=== PATIENT | female | born 1950 | race Caucasian/White ===

== ENCOUNTER 2020-02-15 18:15 | Outpatient (CLI) | payer MEDICARE, OTHER | END 2020-02-15 18:16 | disposition critical access hospital (66) | LOC: EMS 18:15 | PROVIDERS: ATTEND Surgery | DX: S09.90XA Unspecified injury of head, initial encounter (principal); W01.0XXA Fall on same level from slipping, tripping and stumbling without subsequent striking against object, initial encounter; Y92.008 Other place in unspecified non-institutional (private) residence as the place of occurrence of the external cause; Z79.01 Long term (current) use of anticoagulants | CPT/HCPCS: A0425; A0429 ==

== ENCOUNTER 2020-02-15 18:31 | Emergency (ER) | payer MEDICARE, OTHER ==
--- NOTE | 2020-02-15 18:41 | ED Physician Documentation ---
PD HPI HEAD INJURY - Stated complaint Stated Complaint: FALL/ HEAD INJURY - History obtained from History obtained from: Patient (This is a very pleasant 69-year-old woman who is maintained On warfarin for a history of factor V Leiden with history of PEs, last checked 4 days ago and it was 2.1 per her. Her cat got outside today and she was chasing it down, went around a corner in the driveway and slipped and fell hitting her left side of her head against a brick planter. No loss of consciousness and only a minimal headache. She also has a little scratch on the left forearm. She is up-to-date on tetanus.) Review of Systems Constitutional: reports: Reviewed and negative Ears: reports: Reviewed and negative Nose: reports: Reviewed and negative Throat: reports: Reviewed and negative PD PAST MEDICAL HISTORY - Present Medications Home Medications: Ambulatory Orders Medication Instructions Recorded Confirmed Levothyroxine [Synthroid] 50 mcg PO QDAC 02/15/20 02/15/20 Propranolol HCl [Propranolol HCl 60 mg PO DAILY 02/15/20 02/15/20 ER] Sertraline [Zoloft] 50 mg PO DAILY 02/15/20 02/15/20 Warfarin [Coumadin] 3 mg PO DAILY 02/15/20 02/15/20 traZODone [Desyrel] 50 mg PO HS 02/15/20 02/15/20 - Allergies Allergies/Adverse Reactions: Allergies Allergy/AdvReac Type Severity Reaction Status Date / Time acyclovir Allergy Anaphylaxis Verified 02/15/20 19:01 cefdinir Allergy Anaphylaxis Verified 02/15/20 19:01 cefuroxime Allergy Anaphylaxis Verified 02/15/20 19:01 ciprofloxacin [From Cipro] Allergy Anaphylaxis Verified 02/15/20 19:01 dapsone Allergy Anaphylaxis Verified 02/15/20 19:01 doxycycline [From Vibramycin] Allergy Anaphylaxis Verified 02/15/20 19:01 metoclopramide [From Reglan] Allergy Anaphylaxis Verified 02/15/20 19:01 Penicillins Allergy Anaphylaxis Verified 02/15/20 19:01 prednisone Allergy Anaphylaxis Verified 02/15/20 19:01 Npazaqi-Mpc-Ibl Reductase Allergy Anaphylaxis Verified 02/15/20 19:01 Inhibitor PD ED PE NORMAL - Vitals Vital signs reviewed: Yes - General General: Alert and oriented X 3, No acute distress, Other (There is a scratch on her left arm, no tenderness.) - HEENT HEENT: PERRL, EOMI - Neck Neck: No bony TTP (Maintained in a collar pending imaging given advanced age) - Neuro Neuro: Alert and oriented X 3, 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, No motor deficit, No sensory deficit, Normal speech Results - Vitals Vitals: Vital Signs - 24 hr 02/15/20 02/15/20 18:38 19:30 Temperature 37.1 C Heart Rate 71 70 Respiratory 20 16 Rate Blood Pressure 157/83 H 152/88 H O2 Saturation 100 97 Oxygen O2 Source Room air - Labs Labs: Laboratory Tests 02/15/20 19:20 Whole Blood INR 2.2 H - Rads (name of study) CT head and cervical spine Radiology: EMP read contemporaneously (No traumatic injuries) PD MEDICAL DECISION MAKING - ED course ED course: 69-year-old woman on anticoagulation for history of factor V Leiden presents after ground-level fall with a head injury. CT of the head and neck were negative for traumatic injuries. INR was 2.2. Departure - Departure Disposition: 01 Home, Self Care Clinical Impression: Adequate anticoagulation on anticoagulant therapy Injury of head and neck Qualifiers: Encounter type: initial encounter Qualified Code(s): S09.90XA - Unspecified injury of head, initial encounter Condition: Good Record reviewed to determine appropriate education?: Yes Instructions: ED Head Injury Closed Comments: Call your doctor to arrange a follow-up appointment, make the next available appointment. In the interim, return anytime if worse or if new symptoms develop. Discharge Date/Time: 02/15/20 19:30
--- NOTE | 2020-02-15 19:00 | CT Report ---
Reason: head injury Procedure Date: 02/15/2020 Accession Number: [id number] / [id number] Procedure: CT - HEAD WO CPT Code: Final Report FULL RESULT: EXAM: CT HEAD EXAM DATE: 02/15/2020 06:53 PM. CLINICAL HISTORY: Head injury. COMPARISON: None. TECHNIQUE: Multiaxial CT images were obtained from the foramen magnum to the vertex. Reformats: Sagittal and coronal. IV contrast: None. In accordance with CT protocol optimization, one or more of the following dose reduction techniques were utilized for this exam: automated exposure control, adjustment of mA and/or KV based on patient size, or use of iterative reconstructive technique. FINDINGS: Parenchyma: No intraparenchymal hemorrhage. No evidence of mass, midline shift, or CT findings of infarction. Jalloh-white differentiation is distinct. Extraaxial Spaces: Normal for age. No subdural or epidural collections identified. Ventricles: Normal in size and position. Sinuses and Orbits: Imaged paranasal sinuses, orbits, and mastoids show no significant abnormality. Bones: No evidence of fracture or calvarial defect. Other: None. IMPRESSION: No acute traumatic intracranial abnormality. RADIA
--- NOTE | 2020-02-15 19:01 | CT Report ---
Reason: head injury Procedure Date: 02/15/2020 Accession Number: [id number] / [id number] Procedure: CT - CERVICAL SPINE WO CPT Code: Final Report FULL RESULT: EXAM: CT CERVICAL SPINE WITHOUT CONTRAST DATE: 02/15/2020 06:53 PM. HISTORY: Head injury. COMPARISONS: None. TECHNIQUE: Thin-section axial images were acquired of the cervical spine without contrast. Post-processing: Coronal and sagittal reformats. Other: None. In accordance with CT protocol optimization, one or more of the following dose reduction techniques were utilized for this exam: automated exposure control, adjustment of mA and/or KV based on patient size, or use of iterative reconstructive technique. FINDINGS: Alignment: No scoliosis or spondylolisthesis. Bones: No fracture or bone lesion. Musculature: Normal. No fatty atrophy. Other: The paravertebral and prevertebral soft tissues are unremarkable. The lung apices are clear. IMPRESSION: No acute displaced fracture or malalignment in clinical setting of trauma. RADIA
[2020-02-15 19:31] VITALS: BP 152/88
== END 2020-02-15 19:30 | disposition home or self-care (01) ==
LOC: ED 18:31
DX: S09.90XA Unspecified injury of head, initial encounter (principal); S50.812A Abrasion of left forearm, initial encounter; W01.198A Fall on same level from slipping, tripping and stumbling with subsequent striking against other object, initial encounter; Y93.89 Activity, other specified; Y92.008 Other place in unspecified non-institutional (private) residence as the place of occurrence of the external cause; D68.51 Activated protein C resistance; Z86.711 Personal history of pulmonary embolism; Z79.01 Long term (current) use of anticoagulants
CPT/HCPCS: 70450; 72125; 85610; 99284

== ENCOUNTER 2020-11-01 14:07 | Outpatient (CLI) | payer MEDICARE, OTHER | END 2020-11-01 14:08 | disposition home or self-care (01) | LOC: COV 14:07 | PROVIDERS: ATTEND Family Medicine | DX: R05 Cough (principal); M79.10 Myalgia, unspecified site; R53.83 Other fatigue; R68.83 Chills (without fever); R07.0 Pain in throat; R43.8 Other disturbances of smell and taste; R09.81 Nasal congestion; J34.89 Other specified disorders of nose and nasal sinuses; R19.7 Diarrhea, unspecified; Z20.822 Contact with and (suspected) exposure to COVID-19 ==

== ENCOUNTER 2021-01-30 08:00 | Outpatient (CLI) | payer MEDICARE, OTHER ==
[2021-01-31 19:04] LABS: BACTERIAL VAGINOSIS DNA NEGATIVE (NEGATIVE); CANDIDA GLABRATA DNA NEGATIVE (NEGATIVE); CANDIDA GROUP DNA NEGATIVE (NEGATIVE); CANDIDA KRUSEI DNA NEGATIVE (NEGATIVE); TRICHOMONAS VAGINALIS DNA NEGATIVE (NEGATIVE)
== END 2021-01-30 23:59 | disposition home or self-care (01) ==
LOC: LAB.R 08:00
PROVIDERS: ATTEND Obstetrics & Gynecology
DX: B37.9 Candidiasis, unspecified (principal)
CPT/HCPCS: 87661; 87801

== ENCOUNTER 2021-02-05 08:00 | Outpatient (CLI) | payer MEDICARE, OTHER | END 2021-02-05 23:59 | disposition home or self-care (01) | LOC: LAB.R 08:00 | PROVIDERS: ATTEND Internal Medicine Hematology & Oncology | DX: C90.00 Multiple myeloma not having achieved remission (principal) | CPT/HCPCS: 81599; 82570; 84156; 84166 ==

== ENCOUNTER 2021-02-10 10:59 | Outpatient (CLI) | payer MEDICARE, OTHER ==
--- NOTE | 2021-02-11 12:12 | Mammography Report ---
BILATERAL DIGITAL SCREENING MAMMOGRAM 3D/2D: 02/10/2021 CLINICAL: Routine screening. Comparison is made to exams dated: 05/03/2019 mammogram, 01/25/2018 mammogram, and 07/18/2015 mammogra m - [facility]. The tissue of both breasts is heterogeneously dense. This may lower the sensitiv ity of mammography. No significant masses, calcifications, or other findings are seen in either breast. There has been no significant interval change. IMPRESSION: NEGATIVE There is no mammographic evidence of malignancy. A 1 year screening mammogram is recommended. This exam was interpreted at Station ID: [id number]. NOTE: For mammograms, a report in lay terms will be sent to the patient. Approximately 15% of breast malignancies will not be visualized mammographically. In the management of a palpable breast mass, a negative mammogram must not discourage biopsy of a clinically suspicious lesion. Electronically Signed By: Carlton Gentile M.D. slc/penrad:02/10/2021 13:47:10 ACR BI-RADS Category 1: Negative 3341F PARENCHYMAL PATTERN: (D) - The breast(s) demonstrate(s) heterogeneously dense fibroglandular toni baldwin. BI-RADS CATEGORY: (1) - 1 RECOMMENDATION: (ANNUAL) - Recommend routine annual screening mammography. [id number] 1 year screening LATERALITY: (B)
== END 2021-02-10 11:00 | disposition home or self-care (01) ==
LOC: DI.N 10:59
PROVIDERS: ATTEND Internal Medicine
DX: Z12.31 Encounter for screening mammogram for malignant neoplasm of breast (principal)

== ENCOUNTER 2021-07-31 13:07 | Outpatient (CLI) | payer MEDICARE, OTHER | END 2021-07-31 13:08 | disposition critical access hospital (66) | LOC: EMS 13:07 | DX: S09.90XA Unspecified injury of head, initial encounter (principal); M54.2 Cervicalgia; W01.0XXA Fall on same level from slipping, tripping and stumbling without subsequent striking against object, initial encounter; Y92.009 Unspecified place in unspecified non-institutional (private) residence as the place of occurrence of the external cause | CPT/HCPCS: A0425; A0429 ==

== ENCOUNTER 2021-07-31 13:18 | Emergency (ER) | payer MEDICARE, OTHER ==
[2021-07-31] MEDS ORDERED: HYDROcod/ACETAM 5/325 MG TABLET PO STA (13:23)
--- NOTE | 2021-07-31 13:24 | ED Physician Documentation ---
PD HPI HEAD INJURY - Stated complaint Stated Complaint: GLF - History obtained from History obtained from: Patient, EMS - Additional information Additional information: 71-year-old woman who is on Coumadin for history of factor V Leiden with history of thromboembolic disease presents by ambulance after a ground-level fall. She was carrying a box and tripped over it and fell forward hitting her face on the ground. There is no loss of consciousness but she does have moderate headache and neck pain. She also had some visual flashes which are resolving. She requests pain medication. She is up-to-date on tetanus. 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 - Past Surgical History Past Surgical History: Yes General: Bowel surgery Ortho: Knee replacement, Shoulder arthroplasty /TEST ENGINEERING MANAGER: Hysterectomy HEENT: Tonsil/Adenoidectomy - Present Medications Home Medications: Ambulatory Orders Medication Instructions Recorded Confirmed Levothyroxine [Synthroid] 50 mcg PO QDAC 02/15/20 07/07/21 Propranolol HCl [Propranolol HCl 60 mg PO DAILY 02/15/20 07/07/21 ER] Sertraline [Zoloft] 50 mg PO DAILY 02/15/20 07/07/21 Warfarin [Coumadin] 3 mg PO DAILY 02/15/20 07/07/21 traZODone [Desyrel] 50 mg PO HS 02/15/20 07/07/21 HYDROcod/ACETAM 5/325 [Warren 5/325] 1 - 2 tab PO Q6H PRN #15 tablet 07/31/21 - Allergies Allergies/Adverse Reactions: Allergies Allergy/AdvReac Type Severity Reaction Status Date / Time acyclovir Allergy Anaphylaxis Verified 07/31/21 13:26 cefdinir Allergy Anaphylaxis Verified 07/31/21 13:26 cefuroxime Allergy Anaphylaxis Verified 07/31/21 13:26 ciprofloxacin [From Cipro] Allergy Anaphylaxis Verified 07/31/21 13:26 dapsone Allergy Anaphylaxis Verified 07/31/21 13:26 doxycycline [From Vibramycin] Allergy Anaphylaxis Verified 07/31/21 13:26 metoclopramide [From Reglan] Allergy Anaphylaxis Verified 07/31/21 13:26 Penicillins Allergy Anaphylaxis Verified 07/31/21 13:26 prednisone Allergy Anaphylaxis Verified 07/31/21 13:26 Nuapemx-GJP-UeO Reductase Allergy Anaphylaxis Verified 07/31/21 13:26 Inhibitor [Raeopgl-Igt-Loq Reductase Inhibitor] - Social History Does the pt smoke?: No Smoking Status: Never smoker PD ED PE NORMAL - Vitals Vital signs reviewed: Yes - General General: Alert and oriented X 3, No acute distress - HEENT HEENT: PERRL, EOMI, Other (Shallow abrasions over the tip of the nose and philtrum without bony tenderness of the face) - Neck Neck: Other (Mild mid and upper C-spine tenderness, maintained in a collar pending imaging) - Abdomen Abdomen: Non tender - Back Back: No CVA TTP, No spinal TTP - Extremities Extremities: No deformity, No tenderness to palpate, Normal ROM s pain - Neuro Neuro: Alert and oriented X 3, Normal speech Eye Opening: Spontaneous Motor: Obeys Commands Verbal: Oriented GCS Score: 15 Results - Vitals Vitals: Vital Signs - 24 hr 07/31/21 13:23 Temperature 37.1 C Heart Rate 65 Respiratory 14 Rate Blood Pressure 166/85 H O2 Saturation 99 Oxygen O2 Source Room air - Labs Labs: Laboratory Tests 07/31/21 13:26 INR (Fingerstick) 2.5 H - Rads (name of study) CT of the head without contrast demonstrates atrophy and multifocal white matter ischemic changes without hemorrhage or mass-effect. Radiology: EMP read contemporaneously Cervical spine CT without contrast demonstrates multilevel DDD and art hropathy without trauma Radiology: EMP read contemporaneously Departure - Departure Disposition: 01 Home, Self Care Clinical Impression: Adequate anticoagulation on anticoagulant therapy Injury of head and neck Qualifiers: Encounter type: initial encounter Qualified Code(s): S09.90XA - Unspecified injury of head, initial encounter Condition: Good Instructions: ED Head Injury Closed Prescriptions: HYDROcod/ACETAM 5/325 [Warren 5/325] 1 - 2 tab PO Q6H PRN #15 tablet PRN Reason: Pain Comments: Your INR today was 2.5 which is mid normal range for her somebody was anticoagulated. Return for new or worsening symptoms or if you develop more severe headache or for persistent headaches. Follow-up with your primary care physician.
--- NOTE | 2021-07-31 14:23 | CT Report ---
PROCEDURE: CT brain without contrast INDICATIONS: Trauma, pain TECHNIQUE: Noncontrast 4.5 mm thick angled axial sections acquired from the foramen magnum to the vertex. For r adiation dose reduction, the following was used: automated exposure control, adjustment of mA and/or kV according to patient size. COMPARISON: None. FINDINGS: Cerebrum, Cerebellum and Brainstem: Moderate cerebral and cerebellar atrophy as well as moderate mul tifocal hypoattenuation in the deep and subcortical white matter present. No acute hemorrhage or mas s effect. Jalloh-white distinction is preserved throughout the exam. Basal cisterns and foramen magnu m are clear. Ventricles: Appropriate in size and position given the amount of cerebral atrophy. No evidence of h ydrocephalus. Skull Base: The bony sella, pituitary gland and infundibulum are unremarkable. Clivus and craniover tebral relationships are appropriate. Visualized portions of external auditory canals and tympanic c avities are within normal limits. Calvarium and Scalp: No scalp soft tissue swelling. The underlying calvarium is intact without skul l fracture or lytic lesion. Paranasal Sinuses: Unremarkable as visualized. No mucosal thickening or retention cyst noted. Mastoids: Unremarkable as visualized. No mastoid effusion present. Other: Atherosclerotic calcification in the cavernous portions of the distal internal carotid arteri es are noted. IMPRESSION: 1. Atrophy and multifocal white matter chronic ischemic change without acute hemorrhage or mass effe ct. Reviewed by: Alex Berry MD on 07/31/2021 1:22 PM HEATH Approved by: Alex Berry MD on 07/31/2021 1:22 PM AKDT Station ID: [id number]
--- NOTE | 2021-07-31 14:27 | CT Report ---
PROCEDURE: CERVICAL SPINE WO INDICATIONS: head injury TECHNIQUE: Noncontrast 3 mm thick sections acquired from the skull base to the T4 level. Sagittal a nd coronal reformats were then constructed. For radiation dose reduction, the following was used: a utomated exposure control, adjustment of mA and/or kV according to patient size. COMPARISON: None. FINDINGS: Image quality: Excellent. Bones: No fractures or dislocations. Visualized superior ribs are intact. Disc space narrowing and small anterior osteophytes noted in the mid to lower cervical spine. Moderate central stenosis prese nt at C5-6 and C6-7 Soft tissues: Prevertebral soft tissues are normal in thickness. No paravertebral hematomas. No ap ical pneumothoraces. Atherosclerotic vascular calcification noted in the aortic arch. IMPRESSION: 1. Multilevel degenerative disc disease and arthropathy without fracture or traumatic malalignment Reviewed by: Alex Berry MD on 07/31/2021 1:26 PM AKMARITA Approved by: Alex Berry MD on 07/31/2021 1:26 PM AKDT Station ID: [id number]
[2021-07-31 14:38] VITALS: BP 156/79
[2021-07-31] MEDS ORDERED: BACITRACIN ZINC OINT 1 PACKET TOP STA (14:45)
== END 2021-07-31 14:49 | disposition home or self-care (01) ==
LOC: EDUNIT# → ED 13:18
DX: S09.90XA Unspecified injury of head, initial encounter (principal); S00.31XA Abrasion of nose, initial encounter; S00.511A Abrasion of lip, initial encounter; W01.0XXA Fall on same level from slipping, tripping and stumbling without subsequent striking against object, initial encounter; Y93.89 Activity, other specified; M50.322 Other cervical disc degeneration at C5-C6 level; M48.02 Spinal stenosis, cervical region; D68.51 Activated protein C resistance; Z86.718 Personal history of other venous thrombosis and embolism; Z86.711 Personal history of pulmonary embolism; Z79.01 Long term (current) use of anticoagulants
CPT/HCPCS: 36416; 70450; 72125; 85610; 99283; 99284; A9270

== ENCOUNTER 2021-10-27 10:23 | Outpatient (CLI) | payer MEDICARE, OTHER | END 2021-10-27 10:24 | disposition home or self-care (01) | LOC: LAB.N 10:23 | PROVIDERS: ATTEND Internal Medicine | DX: E03.9 Hypothyroidism, unspecified (principal) | CPT/HCPCS: 36415; 84443 ==

== ENCOUNTER 2021-12-09 08:44 | Day surgery (SDC) | payer MEDICARE, OTHER ==
[2021-12-09] MEDS ORDERED: LACTATED RINGERS 1,000 ML IV ONE ×2 (08:49→11:22)
--- NOTE | 2021-12-09 09:46 | ANESTHESIA ---
Pre-Anesthesia VS, & Labs - Diagnosis hx of polyps - Procedure colonoscopy Vital Signs: Temp Pulse Resp BP Pulse Ox 36.1 C L 73 11 L 143/93 H 100 12/09/21 09:02 12/09/21 09:02 12/09/21 09:02 12/09/21 09:02 12/09/21 09:02 Height: 5 ft 5 in Weight (kg): 95 kg Body Mass Index: 34.8 BMI Classification: Obese - NPO >8 hours - Is Patient ?: No Home Medications and Allergies Home Medications: Ambulatory Orders Alprazolam [Xanax] 0.5 mg PO PRN PRN 11/28/21 Cholecalciferol [Vitamin D3] 50 mcg PO DAILY 11/28/21 Cyanocobalamin (Vitamin B-12) [Vitamin B-12] 1,000 mcg PO DAILY 11/28/21 Enoxaparin [Lovenox] 120 mg SUBQ Q24H 11/28/21 Multivitamin 1 each PO DAILY 11/28/21 Cubero-3/Dha/Epa/Fish Oil [Fish Oil 1,000 mg Softgel] 1 each PO DAILY 11/28/21 Ondansetron [Ondansetron Odt] 8 mg PO PRN PRN 11/28/21 oxyCODONE/ACET 5/325 [Percocet 5 mg/325 mg] 1 each PO Q4-6H PRN 11/28/21 Levothyroxine [Synthroid] 50 mcg PO QDAC 02/15/20 Propranolol HCl [Propranolol HCl ER] 60 mg PO DAILY 02/15/20 Sertraline [Zoloft] 75 mg PO DAILY 02/15/20 Warfarin [Coumadin] 3 mg PO DAILY 02/15/20 traZODone [Desyrel] 50 mg PO HS 02/15/20 Alprazolam [Xanax] 0.5 mg PO PRN PRN 11/28/21 Cholecalciferol [Vitamin D3] 50 mcg PO DAILY 11/28/21 Cyanocobalamin (Vitamin B-12) [Vitamin B-12] 1,000 mcg PO DAILY 11/28/21 Enoxaparin [Lovenox] 120 mg SUBQ Q24H 11/28/21 Multivitamin 1 each PO DAILY 11/28/21 Cubero-3/Dha/Epa/Fish Oil [Fish Oil 1,000 mg Softgel] 1 each PO DAILY 11/28/21 Ondansetron [Ondansetron Odt] 8 mg PO PRN PRN 11/28/21 oxyCODONE/ACET 5/325 [Percocet 5 mg/325 mg] 1 each PO Q4-6H PRN 11/28/21 Allergies/Adverse Reactions: Allergies Allergy/AdvReac Type Severity Reaction Status Date / Time acyclovir Allergy Hives Verified 11/28/21 12:01 cefdinir Allergy palpitations, Verified 11/28/21 12:01 nausea, confusion, diarrhea cefuroxime Allergy Nausea, Verified 11/28/21 12:01 diarrhea ciprofloxacin [From Cipro] Allergy palpitations, Verified 11/28/21 12:01 confusion, hallucinations dapsone Allergy methemoglob Verified 11/28/21 12:01 inemia doxycycline [From Vibramycin] Allergy Anaphylaxis Verified 11/28/21 12:01 metoclopramide [From Reglan] Allergy confusion, Verified 11/28/21 12:01 hallucinations, jittery, tremors nitrofurantoin Allergy palpitation Verified 11/28/21 12:01 [From Macrobid] s Penicillins Allergy Anaphylaxis Verified 11/28/21 12:01 prednisone Allergy Hallucinati Verified 11/28/21 12:01 ons Tpwzcls-PCQ-ZdK Reductase Allergy muscle Verified 11/28/21 12:01 Inhibitor pain, [Dyigajn-Ltm-Jcs Reductase kidney Inhibitor] issues Anes History & Medical History - Anesthetic History Anesthesia Complications: reports: No previous complications Family history of Anesthesia Complications: Denies Family history of Malignant Hyperthermia: Denies - Medical History Cardiovascular: reports: High cholesterol, Deep vein thrombosis, Pulmonary embolism, Atrial fibrillation, Arrhythmia, Valve disorder Pulmonary: reports: None Gastrointestinal: reports: Colon polyps, Other Urinary: reports: Kidney stones Musculoskeletal: reports: None Endocrine/Autoimmune: reports: Other Skin: reports: Other Smoking Status: Never smoker - Surgical History General: reports: Bowel surgery, Colonoscopy, Other Eyes Ears Nose Throat (EENT): reports: Tonsil/Adenoidectomy Gynecologic: reports: Hysterectomy Orthopedic: reports: Rotator cuff repair, Arthroscopic surgery Dermatologic: reports: Skin cancer surgery Exam General: Alert, Oriented x3, Cooperative Dental: WNL Mouth Openin Fingerbreadth Neck Mobility: Normal Mallampati classification: II Thyromental Distance: 4-6 cm Respiratory: Lungs clear Cardiovascular: Regular rate Plan Anesthesia Type: Total IV Consent for Procedure(s) Verified and Reviewed: Yes Code Status: Attempt Resuscitation ASA classification: 3-Severe systemic disease Is this case an emergency?: No
[2021-12-09] MEDS ORDERED: PROPOFOL 500 MG/50 ML 500 MG/50 ML VIAL ONE (10:57)
[2021-12-09 11:47] VITALS: BP 133/87
== END 2021-12-09 08:45 | disposition home or self-care (01) ==
LOC: SDS 08:44
PROVIDERS: ATTEND Surgery
PROC: 0DBE8ZX Excision of Large Intestine, Via Natural or Artificial Opening Endoscopic, Diagnostic (ICD-10-PCS; 2021-12-09)
PROC: 0DBL8ZZ Excision of Transverse Colon, Via Natural or Artificial Opening Endoscopic (ICD-10-PCS; 2021-12-09)
PROC: 0DBM8ZZ Excision of Descending Colon, Via Natural or Artificial Opening Endoscopic (ICD-10-PCS; principal; 2021-12-09 10:15)
DX: R19.7 Diarrhea, unspecified (principal); D12.3 Benign neoplasm of transverse colon; D12.4 Benign neoplasm of descending colon; K57.30 Diverticulosis of large intestine without perforation or abscess without bleeding; E66.9 Obesity, unspecified; Z68.34 Body mass index [BMI] 34.0-34.9, adult; I48.91 Unspecified atrial fibrillation; Z79.01 Long term (current) use of anticoagulants; I34.1 Nonrheumatic mitral (valve) prolapse
CPT/HCPCS: 45380; 81599; 83630; 87015; 87177; 87209; 87272; 87329; 87493; J7120; 87045; 87046

== ENCOUNTER 2021-12-13 10:41 | Outpatient (CLI) | payer MEDICARE, OTHER | END 2021-12-13 23:59 | disposition home or self-care (01) | LOC: LAB.N 10:41 | PROVIDERS: ATTEND Physician Assistant Medical | DX: R30.0 Dysuria (principal) | CPT/HCPCS: 87077; 87086; 87181 ==

== ENCOUNTER 2022-03-24 10:37 | Outpatient (CLI) | payer MEDICARE, OTHER ==
[2022-03-24 12:35] LABS: ESTIMATED AVERAGE GLUCOSE 103 mg/dL (70-100); HEMOGLOBIN A1c% 5.2 % (4.27-6.07)
== END 2022-03-24 10:38 | disposition home or self-care (01) ==
LOC: LAB.N 10:37
PROVIDERS: ATTEND Nurse Practitioner
DX: Z00.00 Encounter for general adult medical examination without abnormal findings (principal); Z71.89 Other specified counseling; Z79.84 Long term (current) use of oral hypoglycemic drugs
CPT/HCPCS: 36415; 83036; 84443

== ENCOUNTER 2023-08-18 15:49 | Outpatient (CLI) | payer MEDICARE | END 2023-08-18 15:50 | disposition short-term general hospital (02) | LOC: EMS 15:49 | PROVIDERS: ATTEND Emergency Medicine | DX: R00.2 Palpitations (principal); R30.0 Dysuria; R03.0 Elevated blood-pressure reading, without diagnosis of hypertension; R42 Dizziness and giddiness; R06.00 Dyspnea, unspecified; R51.9 Headache, unspecified | CPT/HCPCS: A0425; A0429 ==

== ENCOUNTER 2023-10-22 17:59 | Outpatient (CLI) | payer MEDICARE | END 2023-10-22 23:59 | disposition EMS.NT | LOC: EMS 17:59 | DX: R22.0 Localized swelling, mass and lump, head (principal) ==

== ENCOUNTER 2024-02-16 15:45 | Outpatient (CLI) | payer MEDICARE | END 2024-02-16 16:00 | disposition home or self-care (01) | LOC: LAB.N 15:45 | PROVIDERS: ATTEND Physician Assistant Medical | DX: R30.0 Dysuria (principal) | CPT/HCPCS: 87086 ==

== ENCOUNTER 2024-03-03 20:53 | Outpatient (CLI) | payer MEDICARE | END 2024-03-03 23:59 | disposition critical access hospital (66) | LOC: EMS 20:53 | DX: R10.12 Left upper quadrant pain (principal); R10.2 Pelvic and perineal pain; R10.812 Left upper quadrant abdominal tenderness | CPT/HCPCS: A0425; A0429 ==

== ENCOUNTER 2024-03-03 21:16 | Emergency (ER) | payer MEDICARE ==
--- NOTE | 2024-03-03 21:39 | ED Physician Documentation ---
PD HPI ABD PAIN - Stated complaint Stated Complaint: LUQ/FLANK PX - Chief complaint Chief Complaint: Abd Pain - History obtained from History obtained from: Patient - Additional information Additional information: This is a 73-year-old female who has a history of multiple myeloma status post stem cell transplant 13 years ago, and a prior colon resection due to a mass in her cecum, As well as prior DVT and atrial fibrillation now currently on warfarin, presents with left-sided abdominal pain for the last week or so but worsening today. It starts in the suprapubic region and radiates up into the left flank and left upper back. She states no dysuria urgency or frequency, no hematuria, no change in bowels though she does have chronic diarrhea, she has not had a fever to her knowledge. She states she simply was "tired of the pain," and is presented to the ER. Patient does note she was seen about 2 weeks ago in the walk-in clinic and given a 3-day course of Bactrim for presumably a UTI and she is concerned that this did not completely resolve her symptoms as she did seem to get better for a period of time before symptoms recurred. Review of Systems Constitutional: reports: Reviewed and negative Eyes: reports: Reviewed and negative Ears: reports: Reviewed and negative Nose: reports: Reviewed and negative Throat: reports: Reviewed and negative Cardiac: reports: Reviewed and negative Respiratory: reports: Reviewed and negative GI: reports: Abdominal Pain, Nausea, Diarrhea. 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 MAKER: Endometriosis : Kidney stones HEENT: Chronic vision loss, Other Psych: Claustrophobia Musculoskeletal: None Derm: Other - Past Surgical History Past Surgical History: Yes General: Bowel surgery, Colonoscopy, Other Ortho: Rotator cuff repair, Arthroscopic surgery /CATALOGUE MAKER: Hysterectomy HEENT: Tonsil/Adenoidectomy Derm: Skin cancer surgery - Present Medications Home Medications: Ambulatory Orders Medication Instructions Recorded Confirmed Levothyroxine [Synthroid] 50 mcg PO QDAC 02/15/20 04/13/22 Propranolol HCl [Propranolol HCl 60 mg PO DAILY 02/15/20 04/13/22 ER] Sertraline [Zoloft] 75 mg PO DAILY 02/15/20 04/13/22 Warfarin [Coumadin] 3 mg PO DAILY 02/15/20 04/13/22 traZODone [Desyrel] 50 mg PO HS 02/15/20 04/13/22 Alprazolam [Xanax] 0.5 mg PO PRN PRN 11/28/21 04/13/22 Cholecalciferol [Vitamin D3] 50 mcg PO DAILY 11/28/21 04/13/22 Cyanocobalamin (Vitamin B-12) 1,000 mcg PO DAILY 11/28/21 04/13/22 [Vitamin B-12] Enoxaparin [Lovenox] 120 mg SUBQ Q24H 11/28/21 04/13/22 Multivitamin 1 each PO DAILY 11/28/21 04/13/22 [place]-3/Dha/Epa/Fish Oil [Fish Oil 1 each PO DAILY 11/28/21 04/13/22 1,000 mg Softgel] Ondansetron [Ondansetron Odt] 8 mg PO PRN PRN 11/28/21 04/13/22 oxyCODONE/ACET 5/325 [Percocet 5 1 each PO Q4-6H PRN 11/28/21 04/13/22 mg/325 mg] - Allergies Allergies/Adverse Reactions: Allergies Allergy/AdvReac Type Severity Reaction Status Date / Time acyclovir Allergy Hives Verified 03/03/24 21:36 cefdinir Allergy palpitations, Verified 03/03/24 21:36 nausea, confusion, diarrhea cefuroxime Allergy Nausea, Verified 03/03/24 21:36 diarrhea ciprofloxacin [From Cipro] Allergy palpitations, Verified 03/03/24 21:36 confusion, hallucinations dapsone Allergy methemoglob Verified 03/03/24 21:36 inemia doxycycline [From Vibramycin] Allergy Anaphylaxis Verified 03/03/24 21:36 metoclopramide [From Reglan] Allergy confusion, Verified 03/03/24 21:36 hallucinations, jittery, tremors nitrofurantoin Allergy palpitation Verified 03/03/24 21:36 [From Macrobid] s Penicillins Allergy Anaphylaxis Verified 03/03/24 21:36 prednisone Allergy Hallucinati Verified 03/03/24 21:36 ons Dbucovh-PTC-BoA Reductase Allergy muscle Verified 03/03/24 21:36 Inhibitor pain, [Arctnwl-Odt-Asw Reductase kidney Inhibitor] issues sulfamethoxazole Allergy Unknown Verified 03/03/24 21:36 [From ] trimethoprim [From ] Allergy Unknown Verified 03/03/24 21:36 - Social History Does the pt smoke?: No Smoking Status: Never smoker Does the pt have substance abuse?: No PD ED PE NORMAL - Vitals Vital signs reviewed: Yes - General General: Alert and oriented X 3, No acute distress, Well developed/nourished - HEENT HEENT: Atraumatic, Moist mucous membranes - Cardiac Cardiac: RRR, No murmur - Respiratory Respiratory: No respiratory distress, Clear bilaterally - Abdomen Abdomen: Normal bowel sounds, Soft, Non distended, Other (Mild suprapubic tenderness) - Back Back: Other (Left CVAT) - Derm Derm: Normal color, Warm and dry, No rash Results - Vitals Vitals: Vital Signs - 24 hr 03/03/24 21:30 Temperature 36.7 C Heart Rate 73 Respiratory 20 Rate Blood Pressure 154/59 H O2 Saturation 96 Oxygen O2 Source Room air PD Medical Decision Making - ED course Complexity details: considered differential, d/w patient ED course: This is a 73-year-old female with past medical history is as above who presents with left suprapubic and lower quadrant pain rating into the left flank for the past week or so with no improvement. She is well-appearing here on physical exam, nontoxic afebrile and in no acute distress. Differentials considered included ureteral stone, UTI, pyelonephritis, diverticulitis, among others. We will collect lab work including CBC, CMP, urinalysis, and establish IV access for pain and nausea control. Anticipate patient will likely need a CT, pending lab work. Patient will be signed out to ED attending at the conclusion of my shift pending patient's workup. Departure - Departure
[2024-03-03] MEDS: ONDANSETRON 4 MG/2 ML VIAL IVP STA (22:09)
[2024-03-03] MEDS: MORPHINE 2 MG/ML CARPUJECT IVP STA (22:09)
[2024-03-03 22:25] LABS: BASOPHILS % (AUTO) 0.1 %; EOSINOPHILS % (AUTO) 0.4 %; HCT - HEMATOCRIT 37.9 % (37.0-47.0); HGB - HEMOGLOBIN 12.1 g/dL (12.0-16.0); LYMPHOCYTES # (AUTO) 2.7 10^3/uL (1.5-3.5); LYMPHOCYTES % (AUTO) 29.3 %; MEAN CORPUSCULAR HEMOGLOBIN 30.8 pg (27.0-31.0); MEAN CORPUSCULAR HGB CONC 31.9 g/dL (32.0-36.0); MEAN CORPUSCULAR VOLUME 96.4 fL (81.0-99.0); MONOCYTES # (AUTO) 0.6 10^3/uL (0.0-1.0); MONOCYTES % (AUTO) 6.6 %; NEUTROPHILS # (AUTO) 5.7 10^3/uL (1.5-6.6); NEUTROPHILS % (AUTO) 63.2 %; PLT - PLATELET COUNT 140 10^3/uL (130-450); RED BLOOD COUNT 3.93 10^6/uL (4.20-5.40); RED CELL DISTRIBUTION WIDTH 13.6 % (12.0-15.0); WHITE BLOOD COUNT 9.1 x10^3/uL (4.8-10.8)
[2024-03-03 22:37] LABS: ALBUMIN/GLOBULIN RATIO 1.5 (1.0-2.2); BILIRUBIN,TOTAL 0.5 mg/dL (0.2-1.0); CALCIUM 9.5 mg/dL (8.5-10.3); CREATININE 0.9 mg/dL (0.6-1.3); POTASSIUM 3.8 mmol/L (3.5-4.5); TOTAL PROTEIN 6.7 g/dL (6.4-8.9)
[2024-03-03 22:39] LABS: BILIRUBIN,URINE NEGATIVE (NEGATIVE); GLUCOSE, URINE (UA) NEGATIVE (NEGATIVE); KETONES,URINE (UA) NEGATIVE (NEGATIVE); LEUKOCYTE ESTERASE, URINE NEGATIVE (NEGATIVE); NITRITE,URINE NEGATIVE (NEGATIVE); OCCULT BLOOD,URINE TRACE-INTA (NEGATIVE); PH,URINE 5.5 PH (5.0-7.5); PROTEIN,URINE NEGATIVE (NEGATIVE); UROBILINOGEN,URINE 0.2 (NORMAL) E.U./dL (NORMAL)
[2024-03-03 22:40] LABS: CLARITY,URINE CLEAR (CLEAR)
--- NOTE | 2024-03-03 23:52 | CT Report ---
PROCEDURE: Abdomen/Pelvis WO INDICATIONS: left flank pain TECHNIQUE: A CT scan of the abdomen and pelvis was performed without the use of intravenous contrast. Images we re recorded and evaluated at appropriate window settings. Reformats: coronal and sagittal. For radiat ion dose reduction, the following was used: automated exposure control, adjustment of mA and/or kV ac cording to patient size. COMPARISON: None. FINDINGS: Image quality: Diagnostic. Lower chest: Unremarkable. Liver: No contour-deforming mass. Gallbladder: No radiopaque stones or wall thickening. Biliary tree: No intrahepatic or extrahepatic dilation, accounting for age. Spleen: No splenomegaly. Pancreas: No pancreatic ductal dilation. Adrenals: No adrenal nodule. Kidneys and ureters: No hydronephrosis. No contour-deforming mass. Stomach, bowel and peritoneum: There is no bowel obstruction. No gastric or small bowel wall thickeni ng. Sigmoid diverticulosis is seen with very mild mid sigmoid colon wall thickening and adjacent rishi colonic fat stranding seen in left lower quadrant abdomen series 2 image 120 and series 4 image 90. N o abscess collection. No free fluid of free air. Lymph nodes: No central or retroperitoneal adenopathy. Vessels: No infrarenal aortic aneurysm. Reproductive organs: Unremarkable. Bladder: Bladder wall thickness is normal, accounting for underdistention. No calcified bladder stone s. Pelvic lymph nodes: No adenopathy by size criteria. Bones: No aggressive osseous abnormality. Other: No significant ventral or inguinal hernia. IMPRESSION: 1. No hydronephrosis or obstructing renal stones. 2. Finding is concerning for mid sigmoid diverticulosis in left lower quadrant. No signs of perforati on. No free fluid of free air. No abscess collection. Reviewed by: Heath Neal MD on 03/03/2024 11:51 PM PDT Approved by: Heath Neal MD on 03/03/2024 11:51 PM PDT Station ID: [id number]
[2024-03-04] MEDS: MORPHINE 2 MG/ML CARPUJECT IVP STA (02:15)
[2024-03-04] MEDS: CLINDAMYCIN 150 MG CAPSULE PO STA (02:15)
[2024-03-04] MEDS: oxyCODONE/ACET 5/325 Prepack 4 PO STA (02:22)
[2024-03-04 03:51] VITALS: BP 132/60; O2SAT 99
--- NOTE | 2024-03-04 04:12 | ED Physician Documentation ---
ED Addendum - Addendum Addendum: 03/04/24 04:01 I received signout/turnover of care on this patient from Dr. Glez at the end of his shift; he, in turn, had received turnover care from BARAK Castellanos. Please see BARAK Grove's note for complete H+P. In short, this patient presented for left flank pain. Past medical history includes stem cell transplant for multiple myeloma (patient tells me she is fifteen years cancer-free), diverticulitis, and kidney stones. No concerning or diagnostic findings on blood test, urinalysis. At the time of turnover of care, the results of the CT of her abdomen and pelvis are pending. The CT scan does not have any evidence of hydronephrosis nor obstructing renal stones. Radiologist notes "findings concerning for mid sigmoid diverticulosis and left lower quadrant". In the body of radiologist's dictation, there is mention of "very mild mid sigmoid colon wall thickening and adjacent pericolonic fat stranding", presumably s/o mild diverticulitis (radiologist's reading does not specifically mention diverticulitis). I reevaluated this patient and discussed the result the CT with her. She had received 4 mg morphine earlier in the shift, and she tells me that this worked very well for her pain but it feels like it is starting to wear off. She is thus given another dose of 4 mg IV morphine. I discussed options for treatment of the apparent early/mild diverticulitis on CT, specifically whether or not to treat with antibiotics. Although the CT scan reflects mild diverticulitis, on my exam the patient is having significant abdominal discomfort and mild-moderate TTP on my exam (LLQ without rebound/guarding). I recommended antibiotics and patient is in agreement. Unfortunately, the patient has an extensive list of allergies including many different classes of antibiotic. Considering her antibiotic allergy list, the only appropriate coverage for diverticulitis that does not conflict with her allergies is clindamycin. She is thus given 300 mg p.o. clindamycin in the ED, and I have provided a prescription for a 1-week course of clindamycin. Return precautions are reviewed. I advised her to contact her primary care provider on Wednesday to arrange for the next available appointment for reevaluation/follow-up. I have also electronically submitted a prescription for Percocet. I am prescribing a short course of short-acting opioid pain medication for this patient. 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 I have discussed that the opioids are for short term therapy only, and will not be refilled from the ED.
== END 2024-03-04 03:00 | disposition home or self-care (01) ==
LOC: EDUNIT# → ED 21:16
DX: K57.92 Diverticulitis of intestine, part unspecified, without perforation or abscess without bleeding (principal); E78.00 Pure hypercholesterolemia, unspecified; I48.91 Unspecified atrial fibrillation; Z79.01 Long term (current) use of anticoagulants; Z79.899 Other long term (current) drug therapy
CPT/HCPCS: 36415; 74176; 80053; 81003; 83690; 85025; 96374; 96376; 99284; A9270; 81001; 87086